=== PATIENT | female | born 1950 ===

== ENCOUNTER 2020-08-18 09:30 | Day surgery (SDC) | payer OTHER ==
[~2020-08-18 09:30] MED LIST: CRESTOR10 MG PO; JANUVIA100 MG PO; PANTOPRAZOLE SO40 MG PO; SERTRALINE HCL100 MG PO; TENORMIN50 M1 PO; VASOTEC5 MG PO
[2020-08-18] MEDS ORDERED: COLACE100 MG PO (11:50)
[2020-08-18] MEDS ORDERED: PERCOCET 5-3251 EACH PO (11:50)
== END 2020-08-18 16:50 | disposition home or self-care (01) ==
LOC: CIR.AMB 09:30
PROVIDERS: ATTEND Surgery
DX: K64.4 Residual hemorrhoidal skin tags (principal); K64.2 Third degree hemorrhoids; Z20.822 Contact with and (suspected) exposure to COVID-19